=== PATIENT | female | born 1990 | race Caucasian/White ===

== ENCOUNTER 2018-02-22 09:25 | Emergency (ER) | payer SELFPAY ==
[~2018-02-22] VITALS: Ht 170.2 cm; Wt 65.8 kg
--- NOTE | 2018-02-22 09:58 | NUR ---
ADAMS MUNOZ at bedside for patient evaluation.
--- NOTE | 2018-02-22 10:51 | NUR ---
Patient in CT at this time.
--- NOTE | 2018-02-22 10:56 | NUR ---
Patient back from CT at this time. no acute distress noted. VSS. C-collar/back board in place.
--- NOTE | 2018-02-22 11:17 | NUR ---
C-Collar/Back board cleared by ER MD. Patient noted with ROM at baseline. No tenderness to spine/neck noted.
--- NOTE | 2018-02-22 11:23 | NUR ---
Patient discharged to home in stable conditon. Written and verbal after care instructions given. Patient verbalizes understanding of instructions.Ambulated from ER with stable gait. All belongings with patient.
[2018-02-22 11:24] VITALS: BP 127/78
== END 2018-02-22 11:25 | disposition home or self-care (01) ==
LOC: ER 09:26
DX: S39.012A Strain of muscle, fascia and tendon of lower back, initial encounter (principal); J45.909 Unspecified asthma, uncomplicated; G89.29 Other chronic pain; M54.9 Dorsalgia, unspecified; Z88.5 Allergy status to narcotic agent; Z88.8 Allergy status to other drugs, medicaments and biological substances; Z88.2 Allergy status to sulfonamides; V47.5XXA Car driver injured in collision with fixed or stationary object in traffic accident, initial encounter; Y93.89 Activity, other specified; Y92.410 Unspecified street and highway as the place of occurrence of the external cause; Y99.8 Other external cause status
CPT/HCPCS: 70450; 72125; 72131; A4663